=== PATIENT | female | born 1980 | race American Indian/Alaskan Native ===

== ENCOUNTER 2021-05-18 10:28 | Emergency (ER) | payer SELFPAY ==
[2021-05-18 11:57] LABS: Bacteria,Urine 1+ /HPF (Negative); Bilirubin,Urine NEG (Negative); Blood,Urine NEG (Negative); Color,Urine Straw (Yellow); Protein,Urine <15 mg/dL mg/dL (Negative); Urobilinogen,Urine < 2.0 mg/dL (<2.0)
[2021-05-18 12:59] VITALS: BP 129/74
[2021-05-18] MEDS ORDERED: SODIUM CHLORIDE 0.9% 1000 ML 1,000 ML IV ONE (13:37)
[2021-05-18] MEDS ORDERED: MORPHINE 4 MG/1 ML INJ IV ONE (13:37)
[2021-05-18] MEDS ORDERED: ONDANSETRON 4 MG/2 ML INJ IV ONE (13:37)
[2021-05-18 13:38] LABS: Basophils # (Auto) 0.1 K/mm3 (0.0-0.1); Basophils % (Auto) 1.6 % (0.0-1.8); Eosinophils # (Auto) 0.1 K/mm3 (0.0-0.4); Eosinophils % (Auto) 1.7 % (0.0-4.3); Hematocrit 39.8 % (30.3-42.9); Hemoglobin 13.8 gm/dl (10.1-14.3); Lymphocytes # (Auto) 1.6 K/mm3 (1.2-5.4); Lymphocytes % (Auto) 34.2 % (13.4-35.0); Mean Corpuscular HGB Conc 35 % (30-34); Mean Corpuscular Volume 100 fl (79-97); Monocytes # (Auto) 0.4 K/mm3 (0.0-0.8); Monocytes % (Auto) 7.8 % (0.0-7.3); Platelet Count 233 K/mm3 (140-440); Red Cell Distribution Width 14.2 % (13.2-15.2)
[2021-05-18 13:49] LABS: Alanine Aminotransferase 6 units/L (7-56); Blood Urea Nitrogen 8 mg/dL (7-17); Calcium 9.8 mg/dL (8.4-10.2); Hemolysis Index 17
[2021-05-18 13:53] LABS: BUN/Creatinine Ratio 11
--- NOTE | 2021-05-18 14:21 | Emergency Department Report ---
ED Abdominal Pain HPI - General Chief Complaint: Abdominal Pain Stated Complaint: PAIN IN STOMACH Time Seen by Provider: 05/18/21 12:29 Source: patient Mode of arrival: Ambulatory Limitations: No Limitations - History of Present Illness Initial Comments: 41-year-old -[place] female presents to the emergency room complaining abdominal pain times normoactive intermittent nausea. Patient denies any fever chills admits to nausea but no vomiting. She does admit to heartburn. She states being constipated makes it worse better with nothing. Patient states she has a history of diverticulitis and peritonitis and a tubal ligation. Patient also had a hernia repair with surgery for umbilical hernia. Patient denies any diarrhea no bloody stool no urinary symptoms. She is 2 para 2. MD Complaint: abdominal pain - Related Data Allergies Allergy/AdvReac Type Severity Reaction Status Date / Time No Known Allergies Allergy Verified 05/18/21 11:06 ED Review of Systems ROS: Stated complaint: PAIN IN STOMACH Other details as noted in HPI ED Past Medical Hx - Past Medical History Previous Medical History?: Yes Additional medical history: diverticulitis ED Physical Exam - General Limitations: No Limitations General appearance: alert, in no apparent distress - Head Head exam: Present: atraumatic, normocephalic - Eye Eye exam: Present: normal appearance - ENT ENT exam: Present: mucous membranes moist - Neck Neck exam: Present: normal inspection, full ROM - Respiratory Respiratory exam: Absent: normal lung sounds bilaterally, chest wall tenderness, accessory muscle use - Cardiovascular Cardiovascular Exam: Present: regular rate - GI/Abdominal GI/Abdominal exam: Present: soft. Absent: distended, tenderness, guarding, rebound - Extremities Exam Extremities exam: Present: normal inspection - Back Exam Back exam: Present: normal inspection - Neurological Exam Neurological exam: Present: alert, oriented X3 - Psychiatric Psychiatric exam: Present: normal affect, normal mood - Skin Skin exam: Present: warm, dry, intact, normal color. Absent: rash ED Medical Decision Making - Lab Data Laboratory Tests 05/18/21 05/18/21 05/18/21 11:14 13:04 13:04 WBC 4.7 RBC 4.00 Hgb 13.8 Hct 39.8 MCV 100 H MCH 35 H MCHC 35 H RDW 14.2 Plt Count 233 Lymph % (Auto) 34.2 [place] % (Auto) 7.8 H Eos % (Auto) 1.7 Baso % (Auto) 1.6 Lymph # (Auto) 1.6 [place] # (Auto) 0.4 Eos # (Auto) 0.1 Baso # (Auto) 0.1 Seg Neutrophils % 54.7 Seg Neutrophils # 2.5 Sodium 140 Potassium 3.7 Chloride 103.6 Carbon Dioxide 24 Anion Gap 16 BUN 8 Creatinine 0.7 Estimated GFR > 60 BUN/Creatinine Ratio 11 Glucose 82 Calcium 9.8 Total Bilirubin 1.50 H AST 14 ALT 6 L Alkaline Phosphatase 42 Total Protein 7.4 Albumin 4.0 Albumin/Globulin Ratio 1.2 Lipase 27 HCG, Quant Urine Color Straw Urine Turbidity Clear Urine pH 6.0 Ur Specific [place] 1.004 Urine Protein <15 mg/dl Urine Glucose (UA) Neg Urine Ketones Neg Urine Blood Neg Urine Nitrite Neg Urine Bilirubin Neg Urine Urobilinogen < 2.0 Ur Leukocyte Esterase Neg Urine WBC (Auto) 1.0 Urine RBC (Auto) 2.0 U Epithel Cells (Auto) 1.0 Urine Bacteria (Auto) 1+ 05/18/21 13:45 WBC RBC Hgb Hct MCV MCH MCHC RDW Plt Count Lymph % (Auto) [place] % (Auto) Eos % (Auto) Baso % (Auto) Lymph # (Auto) [place] # (Auto) Eos # (Auto) Baso # (Auto) Seg Neutrophils % Seg Neutrophils # Sodium Potassium Chloride Carbon Dioxide Anion Gap BUN Creatinine Estimated GFR BUN/Creatinine Ratio Glucose Calcium Total Bilirubin AST ALT Alkaline Phosphatase Total Protein Albumin Albumin/Globulin Ratio Lipase HCG, Quant < 5 H Urine Color Urine Turbidity Urine pH Ur Specific [place] Urine Protein Urine Glucose (UA) Urine Ketones Urine Blood Urine Nitrite Urine Bilirubin Urine Urobilinogen Ur Leukocyte Esterase Urine WBC (Auto) Urine RBC (Auto) U Epithel Cells (Auto) Urine Bacteria (Auto) - Medical Decision Making 41-year-old -[place] female presents to the emergency room complaining abdominal pain times normoactive intermittent nausea. Patient denies any fever chills admits to nausea but no vomiting. She does admit to heartburn. She states being constipated makes it worse better with nothing. Patient states she has a history of diverticulitis and peritonitis and a tubal ligation. Patient also had a hernia repair with surgery for umbilical hernia. Patient denies any diarrhea no bloody stool no urinary symptoms. She is 2 para 2. CBC CMP lipase. Normal saline pain medication Zofran. Critical care attestation.: If time is entered above; I have spent that time in minutes in the direct care of this critically ill patient, excluding procedure time. ED Disposition Clinical Impression: Abdominal pain Disposition: [id number] TO HOME OR SELFCARE Is pt being admited?: No Does the pt Need Aspirin: No Condition: Stable Instructions: Abdominal Pain (ED), Abdominal Pain, Adult, [id number] Additional Instructions: All labs look within normal limits. 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 Referrals: PRIMARY CARE, [Primary Care Provider] - 3-5 Days [facility] [Provider Group] - 3-5 Days Forms: Work/School Release Form(ED) Time of Disposition: 15:34
== END 2021-05-18 15:58 | disposition home or self-care (01) ==
LOC: ED 10:28
DX: R10.9 Unspecified abdominal pain (principal); R11.0 Nausea
CPT/HCPCS: 36415; 80053; 81001; 83690; 84702; 85025; 96361; 96374; 96375; 99283; J2270; J2405; J7030